=== PATIENT | male | born 1960 ===

== ENCOUNTER 2018-11-23 11:43 | Day surgery (SDC) | payer SELFPAY ==
[~2018-11-23] VITALS: Ht 170.2 cm; Wt 136.4 kg
[~2018-11-23 11:43] MED LIST: DOCU100 PO; HYDACE5; HYDACE5 PO
== END 2018-11-23 14:58 | disposition home or self-care (01) ==
LOC: ORSCSDS 11:43
PROVIDERS: Ophthalmology
PROC: 08RK3JZ Replacement of Left Lens with Synthetic Substitute, Percutaneous Approach (ICD-10-PCS; principal; 2018-11-23 14:00)
DX: H25.12 Age-related nuclear cataract, left eye (principal); E11.9 Type 2 diabetes mellitus without complications; E66.01 Morbid (severe) obesity due to excess calories; Z68.41 Body mass index [BMI] 40.0-44.9, adult; Z87.891 Personal history of nicotine dependence
CPT/HCPCS: 82947; J2001; J2250; J3010; J7120; V2632

== ENCOUNTER 2018-12-27 06:04 | Day surgery (SDC) | payer SELFPAY ==
[~2018-12-27] VITALS: Ht 182.9 cm; Wt 136.8 kg
== END 2018-12-27 08:06 | disposition home or self-care (01) ==
LOC: ORSCSDS 06:04
PROVIDERS: Ophthalmology
PROC: 08RJ3JZ Replacement of Right Lens with Synthetic Substitute, Percutaneous Approach (ICD-10-PCS; principal; 2018-12-27 07:30)
DX: H25.11 Age-related nuclear cataract, right eye (principal); E66.01 Morbid (severe) obesity due to excess calories; Z68.41 Body mass index [BMI] 40.0-44.9, adult
CPT/HCPCS: J2001; J2250; J3010; J3301; J7120; V2632

== ENCOUNTER 2023-05-02 11:07 | Day surgery (SDC) | payer BC ==
[~2023-05-02] VITALS: Ht 177.8 cm; Wt 128.1 kg
[2023-05-02] MEDS ORDERED: ASPI81CH (11:35)
[2023-05-02] MEDS ORDERED: ATOR80 (11:36)
[2023-05-02] MEDS ORDERED: METF500 (11:36)
[2023-05-02 13:57] VITALS: BP 106/79
--- NOTE | 2023-05-02 13:58 | NUR ---
05/02/23 1358 Kizzy Devries IV DC'D, CATH INTACT. PT TOLERATED WELL. GAUZE/COBAN IN PLACE
== END 2023-05-02 13:58 | disposition home or self-care (01) ==
LOC: ORSCSDS 11:07
PROVIDERS: Internal Medicine Gastroenterology
PROC: 3E0H8GC Introduction of Other Therapeutic Substance into Lower GI, Via Natural or Artificial Opening Endoscopic (ICD-10-PCS; principal; 2023-05-02 13:30)
PROC: 0DBL8ZX Excision of Transverse Colon, Via Natural or Artificial Opening Endoscopic, Diagnostic (ICD-10-PCS; principal; 2023-05-02 13:30)
PROC: 0DBC8ZX Excision of Ileocecal Valve, Via Natural or Artificial Opening Endoscopic, Diagnostic (ICD-10-PCS; principal; 2023-05-02 13:30)
DX: Z12.11 Encounter for screening for malignant neoplasm of colon (principal); D12.3 Benign neoplasm of transverse colon; D12.0 Benign neoplasm of cecum; E66.01 Morbid (severe) obesity due to excess calories; Z68.41 Body mass index [BMI] 40.0-44.9, adult; G47.33 Obstructive sleep apnea (adult) (pediatric); Z87.891 Personal history of nicotine dependence; E11.9 Type 2 diabetes mellitus without complications; Z86.73 Personal history of transient ischemic attack (TIA), and cerebral infarction without residual deficits; Z79.84 Long term (current) use of oral hypoglycemic drugs
CPT/HCPCS: 82947; 88305; J1980; J2704; J7120; Q9968